=== PATIENT | female | born 1995 | race American Indian/Alaskan Native ===

== ENCOUNTER 2022-02-14 05:09 | Emergency (ER) | payer OTHER ==
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
[2022-02-14 07:33] VITALS: BP 125/66
== END 2022-02-14 07:34 ==
LOC: ED 05:09 → EEVIPCON 05:09 → ED 07:34
DX: M54.2 Cervicalgia (principal)
CPT/HCPCS: 99282